=== PATIENT | female | born 1950 | race African-American/Black ===

== ENCOUNTER 2016-11-07 23:50 | Emergency (ER) | payer OTHER ==
[~2016-11-07 23:50] MED LIST: APRES50 PO; DOCUSOFT S100 MG PO; L40 PO; LOP25 PO; MIRALAXPKT PO; MULTIVITAMI1 PO; NOVOLOG SC; PEP20 PO; PRIN20 PO; PRIN5 PO; SPIRO25 PO; T PO
[2016-11-08 00:45] LABS: BASOPHILS 0.2 %; BASOPHILS ABSOLUTE 0.02 10/3/uL (0.0-0.16); EOSINOPHILS 3.4 %; EOSINOPHILS ABSOLUTE 0.32 10/3/uL (0.0-0.53); ER CBC TAT 0 Hrs 07 Mins; IMMATURE GRANULOCYTES 0.5 %; IMMATURE GRANULOCYTES ABSOLUTE 0.05 10/3/uL (0.0-0.11); LYMPHOCYTES 26.6 %; MEAN CORPUS HGB CONC 33.6 g/dL (32.0-36.0); MEAN PLATELET VOLUME 9.7 fL (9.2-13.0); MONOCYTES 6.4 %; NEUTROPHILS 62.9 %; NEUTROPHILS ABSOLUTE 5.92 10/3/uL (2.02-8.40); PLATELET COUNT 187 10/3/uL (150-400); RBC DISTRIBUTION WIDTH 17.3 % (12.0-16.0); RED CELL COUNT 3.92 10/6/uL (4.0-5.6); WHITE BLOOD CELLS 9.4 10/3/uL (4.5-10.5)
[2016-11-08 00:46] LABS: HEMATOCRIT 37.5 % (36.0-48.0); HEMOGLOBIN 12.6 g/dL (12.0-16.0); MANUAL DIFF NO %; MEAN CORPUSCULAR HEMOGLOB 32.1 pg (26.0-34.0); MEAN CORPUSCULAR VOLUME 95.7 fL (80-100)
[2016-11-08 00:57] LABS: CHLORIDE, SERUM 101 MMOL/L (96-112); POTASSIUM, SERUM 4.6 MMOL/L (3.5-5.3); SODIUM, SERUM 139 MMOL/L (135-148)
[2016-11-08 00:58] LABS: BUN (BLOOD UREA NITROGEN) 36 MG/DL (6-23); CALCIUM, SERUM 7.7 MG/DL (8.5-10.4); CO2 (CARBON DIOXIDE) 29 MMOL/L (24-34); CREATININE 5.56 MG/DL (0.55-1.02); GFR AFRICAN AMERICAN 9 ML/MIN (>=60); GFR NON AFRICAN AMERICAN 7 ML/MIN (>=60); GLUCOSE, SERUM 273 MG/DL (60-99)
[2016-11-15] MEDS ORDERED: CARD30 PO (12:40)
== END 2016-11-08 01:38 | disposition home or self-care (01) ==
LOC: ER 23:50
PROVIDERS: Emergency Medicine
DX: I13.0 Hypertensive heart and chronic kidney disease with heart failure and stage 1 through stage 4 chronic kidney disease, or unspecified chronic kidney disease (principal); N18.9 Chronic kidney disease, unspecified; I50.9 Heart failure, unspecified; R53.1 Weakness; E11.9 Type 2 diabetes mellitus without complications; Z87.891 Personal history of nicotine dependence; Z79.4 Long term (current) use of insulin
CPT/HCPCS: 80048; 85025; 93005; 99285